=== PATIENT | female | born 1985 | race African-American/Black ===

== ENCOUNTER 2017-07-03 10:47 | Emergency (ER) | payer OTHER ==
[~2017-07-03] VITALS: Ht 167.6 cm; Wt 88.5 kg
--- NOTE | ~2017-07-03 | EKG ---
[address] [address] ELECTROCARDIOGRAM REPORT Name: KAYCEE MA [id number] Admission: 07/03/17 Attend Phys: Discharge: 07/03/17 Date of : 89 Report #: [id number] THIS REPORT FOR: //name// [facility] ED Test Date: 2017-07-03 Test Time: 11:07:37 Pat Name: KAYCEE ARTHUR Department: Room: Gender: F [employer]: BORA : 1985 Requested By: Basilio Coulter Order Number: [id number] MD: John Goncalves Measurements Intervals [place] Rate: 76 P: 33 DC: 148 QRS: -15 QRSD: 88 T: 0 QT: 370 QTc: 417 Interpretive Statements Sinus rhythm No previous ECG available for comparison Electronically Signed On 07-03-2017 16:57:23 CDT by John Goncalves [email or web address] <ELECTRONICALLY SIGNED> By: John Goncalves MD 07/03/17 1657 [id number] MD JOSE Montague
[2017-07-03 11:41] LABS: ABSOLUTE NEUTROPHILS 4.8 thou/uL (1.4-8.2); BASOPHILS 0.1 % (0.0-2.0); EOSINOPHILS 1.1 % (0.0-3.0); HEMOGLOBIN 13.9 gm/dL (12.0-15.0); LYMPHOCYTES 22.1 % (24.0-44.0); MCV 84.6 fL (80.0-100.0); MONOCYTES 8.3 % (1.0-8.0); PLATELET COUNT 300 thou/uL (150-400); POLYS 68.4 % (36.0-66.0); RBC 4.96 mil/uL (4.20-5.00); RDW 13.4 % (10.5-14.5)
[2017-07-03 11:44] LABS: ANION GAP 7 mmol/L (7-16); BUN 10 mg/dL (7-18); CALCIUM 8.7 mg/dL (8.5-10.1); CHLORIDE 101 mmol/L (98-107); CO2 24 mmol/L (21-32); CREATININE 0.9 mg/dL (0.6-1.0); GLUCOSE 90 mg/dL (74-106); POTASSIUM 3.5 mmol/L (3.5-5.1); SODIUM 132 mmol/L (136-145)
[2017-07-03 11:54] LABS: TROPONIN-I < 0.04 ng/mL (<0.06)
[2017-07-03 12:06] LABS: URINE BILIRUBIN NEGATIVE (Negative); URINE BLOOD 3+ (Negative); URINE CLARITY CLEAR; URINE COLOR YELLOW; URINE GLUCOSE-RANDOM* NEGATIVE (Negative); URINE KETONES TRACE (Negative); URINE NITRITE-REFLEX NEGATIVE (Negative); URINE PROTEIN (DIPSTICK) NEGATIVE (Negative); URINE SPECIFIC GRAVITY <= 1.005 (1.005-1.035); URINE UROBILINOGEN 0.2 E.U./dl (0.2-1.0)
[2017-07-03 12:07] LABS: URINE LEUKOCYTES-REFLEX TRACE (Negative)
[2017-07-03 12:47] LABS: SQUAMOUS >10 Many /LPF (0-3)
[2017-07-03 12:48] LABS: CASTS None Seen /LPF (None Seen); CRYSTALS None Seen /LPF (None Seen); URINE RBC 0-2 Rare /HPF (0-2); URINE WBC-REFLEX 0-5 Rare /HPF (0-5)
[2017-07-03 12:49] LABS: BACTERIA-REFLEX 1-9 Few /HPF (None Seen)
[2017-07-03 13:19] VITALS: BP 146/88
== END 2017-07-03 13:20 | disposition home or self-care (01) ==
LOC: ER 10:47
PROVIDERS: Nurse Practitioner
DX: R07.89 Other chest pain (principal); E86.0 Dehydration; R11.2 Nausea with vomiting, unspecified